=== PATIENT | male | born 1995 ===

== ENCOUNTER 2023-09-16 09:11 | Inpatient (IN) | payer OTHER, SELFPAY ==
[2023-09-16] VITALS (27 sets, daily range): BP systolic 99–163; BP diastolic 8–98; PULSE 89–130; RESP 16–28; TEMP 36.8–37.4; O2SAT 30–98; BMI 27.9; BMI 28.3; BMI 28.7
--- NOTE | ~2023-09-16 | CT_ITS ---
EXAMINATION: CT CHEST WITHOUT CONTRAST CLINICAL INFORMATION: Shortness of breath. Overdose. COMPARISON: None available. TECHNIQUE: Multidetector volumetric CT imaging of the chest was done. Axial MIP volume rendering provided. Sagittal and coronal reformatted images were obtained. This CT examination was performed using dose optimization techniques as appropriate, variously including the following: *Automated exposure control *Adjustment of mA and/or kV according to patient size (this includes techniques or standardized protocols for targeted exams where dose is matched to indication/reason for exam; i.e. extremities or head) *Use of iterative reconstruction technique DLP: 285 mGy-cm FINDINGS: LUNGS: Extensive bilateral perihilar airspace disease with relative sparing of the peripheral lung. Airspace disease is mostly groundglass type opacities though there are multifocal small alveolar densities opacities scattered through this region of the perihilar lung and also at both lung bases. The differential diagnosis would include inflammatory or infectious etiologies however the perihilar distribution is most suggestive of pulmonary edema. There is no pleural effusion however. Central airways are open. MEDIASTINUM: Heart size is normal. No mediastinal mass or significant lymphadenopathy. There is no pericardial effusion. CORONARY ARTERY CALCIFICATION: None visualized on this study. PLEURA: There is no pleural effusion. No pleural mass or thickening. AXILLA: No lymphadenopathy. UPPER ABDOMEN: Unremarkable. OSSEOUS STRUCTURES: Unremarkable. CT/CT chest wo IV con IMPRESSION: Extensive bilateral perihilar airspace disease with relative sparing of the peripheral lung. The differential diagnosis would include inflammatory or infectious etiologies however the perihilar distribution is most suggestive of pulmonary edema. Fleischner guidelines were followed.
--- NOTE | ~2023-09-16 | XR_ITS ---
EXAMINATION: XR CHEST CLINICAL INFORMATION: Overdose. COMPARISON: None available. TECHNIQUE: Frontal view of the chest was obtained. FINDINGS: Broad bilateral areas of alveolar consolidation likely reflect edema. Heart size normal. Pulmonary vessels not clearly delineated. XR/XR chest 1V IMPRESSION: Widespread confluent alveolar consolidations. This likely reflects noncardiogenic pulmonary edema.
--- NOTE | 2023-09-16 09:36 | PC.NURSE ---
chest xray being taken at this time.
[2023-09-16] MEDS: methylPREDNISolone Sod Succ 125 MG/2 ML VIAL IVPUSH (09:39)
[2023-09-16] MEDS: Naloxone HCl 0.4 MG/ML VIAL IVPUSH (09:39)
[2023-09-16] MEDS: Magnesium Sulfate/H2O 2 GM/50 ML PIGGYBACK IV (09:39)
--- NOTE | 2023-09-16 09:40 | PC.NURSE ---
18gIV placed in the right AC. 20gIV placed in the left AC. medication administered per provider order. pt currently on high flow at this time. settings documented in vitals section. Dr. Valerio bedside. RT bedside. pt seemingly lethargic. states he is feeling sleepy. thick/bloody sputum noted w/ productive cough.
--- NOTE | 2023-09-16 09:54 | ED_ITS ---
HPI - Overdose General Chief Complaint: Overdose Stated Complaint: Overdose Time Seen by Provider: 09/16/23 09:23 Source: patient and other (partner) Mode of arrival: ambulatory Limitations: no limitations History of Present Illness HPI Narrative: 28 yo male with PMH of asthma, recurrent nosebleeds no hx of blood disorder, intermittent sniffing of heroin used this AM with friends when they called his partner and told her he overdosed friends administered a total of 12mg IN narcan and patient then had nosebleed and coughing up blood. Partner rushed him to ED - he was found to have sats of 30% on arrival. He is not on blood thinners. He is not on MAT therapy. He was placed on NRB on arrival. Brought to bed 5 initially started on nebs and NC but sats in 50s. Trialed on high flow and nebs but sat never above 81%, CXR done showing likely diffuse edema vs alveolar hemorrhage placed on Bipap and sats up to 91% and patient feeling better still having intermittent hemoptysis MD complaint: accidental overdose Onset (ago): hour(s) (1) Timing confirmed by: spouse Context: Accidental Overdose: wanted to get high Associated symptoms: other (hemoptysis, epistaxis) Treatments Prior to Arrival: narcan (12) Related Data Home Medications Medication Instructions Recorded Confirmed No Known Home Meds 09/16/23 09/16/23 Allergies Allergy/AdvReac Type Severity Reaction Status Date / Time No Known Allergies Allergy Verified 09/16/23 09:33 Review of Systems 2 Review of Systems: Constitutional : No Fever, No Chills ENT/Mouth : No Hoarseness, No sore throat, No Rhinorrhea Eyes: No Redness, No Discharge, No Vision Changes Cardiovascular : No Chest Pain, positive SOB, positive Dyspnea on Exertion, No Edema Respiratory : positive Cough, No Sputum, positive Wheezing, pos hemoptysis Gastrointestinal : No Nausea, No Vomiting, No Diarrhea, No abdominal Pain Genitourinary : No Dysuria, No Hematuria Musculoskeletal : No joint pain, No Myalgias Skin : No rash Neuro : No Weakness, No Numbness, No Headache Psych : No anxiety, depression All other systems reviewed and are negative PMFSH Past Medical History Attestation statement: The following information was validated with the patient. Source: old records reviewed Medical History (Updated 09/16/23 @ 12:34 by Toya Valerio DO) RBBB Asthma Social History Social History (Updated 09/16/23 @ 10:03 by Toya Valerio DO) Alcohol intake: current Alcohol intake frequency: holidays/special occasions only Patient Tobacco Use Status: Tobacco use Unknown Smoked in Last 30 Days: Yes Use of substances other than those prescribed or required for medical reasons: Yes Substance Use Type: Crack/Cocaine Substance Use Frequency: Occasionally Last Used Substance: Just Prior to Admission Advance Directives: No Physical Exam 2 Vital Signs: Vital Signs: Last Vital Signs Temp 98.6 F 09/16/23 14:09 Pulse 108 H 09/16/23 14:09 Resp 16 09/16/23 14:09 BP 133/69 09/16/23 14:09 Pulse Ox 93 09/16/23 14:09 O2 Del Method High Flow Nasal C annula 09/16/23 14:09 O2 Flow Rate 15 09/16/23 12:03 BMI result Body Mass Index 27.9 Appearance: Alert. Oriented X3. Moderate acute distress. Eyes: Pupils equal, round and reactive to light. ENT: Pharynx normal. Dried blood out of both nares no active bleeding Neck: Normal inspection. Neck supple. CVS: tachycardic heart rate and rhythm. Pulses normal. Respiratory: Moderate respiratory distress - retractions single words. Breath sounds very diminished with rales has intermittent brb hemopytsis Abdomen: Soft and non-tender. Skin: Skin warm and dry. Normal skin color. Normal skin turgor. Extremities: No lower extremity edema. No calf ttp Neuro: Oriented X 3. No motor deficit. No sensory deficit. Course Course Course Narrative: bipap done for asthma and pulmonary edema from narcan not infection or severe sepsis lactic acidosis and eleavated troponin due to profound hypoxia and not infection or severe sepsis I am holding fluids given concern for pulm edema Reevaluation(s) Reevaluation #1: HR down to 120, hemoptysis improving, O2 100%, will continue to monitor Reevaluation #2: trial off bipap 1215pm Reevaluation #3: doing well on high flow at this time 1232pm very intermittent scant hemoptysis it is almost fully resolved Additional Reevaluation(s): trop was due to demand from hypoxia not ACS Dr. Mcintosh will admit Medications Administered Discontinued Medications Generic Name Dose Route Start Last Admin Trade Name Freq PRN Reason Stop Dose Admin Furosemide 20 mg 09/16/23 13:26 09/16/23 13:39 Furosemide 20 Mg/2 Ml Vial IVPUSH 09/16/23 13:27 20 mg ONCE ONE Administration Protocol Magnesium Sulfate 2 gm in 50 mls @ 25 mls/hr 09/16/23 09:33 09/16/23 11:39 Magnesium Sulfate/H2o IV 09/16/23 11:32 Infused ONCE ONE Infusion Potassium Chloride 10 meq in 100 mls @ 100 mls/hr 09/16/23 10:30 09/16/23 13:40 Potassium Chloride/H20 IV 09/16/23 12:29 Infused Q1H SUAD Infusion Methylprednisolone Sodium Succinate 125 mg 09/16/23 09:33 09/16/23 09:39 Methylprednisolone Sod Succ 125 Mg/2 Ml Vial IVPUSH 09/16/23 09:34 125 mg ONCE ONE Administration Naloxone HCl 0.4 mg 09/16/23 09:33 09/16/23 09:39 Naloxone Hcl 0.4 Mg/Ml Vial IVPUSH 09/16/23 09:34 0.4 mg STAT STA Administration Tranexamic Acid 500 mg 09/16/23 10:30 09/16/23 10:27 Tranexamic Acid 1,000 Mg/10 Ml Vial INHALE 09/16/23 10:31 500 mg ONCE ONE Administration Medical Decision Making Medical Decision Making [facility] Narrative: 28 yo male with asthma, nose bleeds here with c/o accidental overdose given 12mg IN narcan by friends no CPR done - hemoptysis sats in 30% on arrival no response to nebs and high flow after CXR placed in bipap now up to 91% given steroids, magnesium, will order CT scan and possibly diurese patient. Given hemoptysis will also given INH tranexamic acid. Anticipate admission pending improvement with NIPPV. Differential Diagnosis Differential Diagnoses: The differential diagnosis associated with the presentation includes overdose, asthma, pulm edema associated with narcan, hemoptysis alveolar hemorrhage Admission/Observation Consideration of admission/observation: Escalation of care including admission/observation considered needs admission for further monitoring Consult Healthcare Provider Management of the patient was discussed with: Hospitalist (will admit ) and Faculty Dean (shayy has been notified as well about troponin - demand) Dr. Mcintosh has reviewed images will follow and consult in ED Lab Data [facility] Lab Attestation statement: I reviewed the patient's lab results. 09/16/23 09:51 09/16/23 09:51 Labs: Lab Results 09/16/23 09/16/23 09/16/23 Range/Units 09:51 09:57 12:00 WBC 7.8 (4.8-10.8) X10*3/uL RBC 4.99 (4.60-5.80) X10*6/uL Hgb 15.6 (14.0-18.0) g/dl Hct 45.4 (42.0-52.0) % MCV 91.0 (80.0-98.0) fL MCH 31.3 (27.0-33.0) pg MCHC 34.4 (31.0-36.0) g/dl RDW 12.5 (11.0-16.0) % Plt Count 193 (160-400) X10*3/uL MPV 9.9 (9.4-12.4) fL Immature Gran % (Auto) 0.1 (0.0-0.4) % Neut % (Auto) 75.6 H (45-73) % Lymph % (Auto) 17.5 L (20-40) % Ness % (Auto) 6.4 (2-11) % Eos % (Auto) 0.1 (0-4) % Baso % (Auto) 0.3 (0-2) % Lymph # (Auto) 1.4 (1.2-4.9) X10*3/uL [place]ess # (Auto) 0.5 (0.1-1.2) X10*3/uL Eos # (Auto) 0.0 (0.0-0.4) X10*3/uL Baso # (Auto) 0.0 (0.0-0.2) X10*3/uL Abs Immat Gran (auto) 0.01 (0.00-0.03) X10*3/uL Absolute Neuts (auto) 5.9 (2.0-8.3) x10*3/uL Absolute Nucleated RBC 0.000 (0.0-0.012) X10*3/uL Nucleated RBC % (auto) 0.0 (0.0-0.2) /100WBC VBG pH 7.33 (7.32-7.43) VBG pCO2 41 mmHg VBG pO2 33 mmHg VBG HCO3 22 (22-26) mmol/L VBG O2 Saturation 51.0 % VBG Base Excess -3.5 mmol/L Sodium 134 L (135-145) mmol/L Potassium 3.2 L (3.3-5.1) mmol/L Chloride 100 (96-108) mmol/L Carbon Dioxide 21 L (22-29) mmol/L Anion Gap 16 (12-20) BUN 12 (9-16) mg/dL Creatinine 1.17 (0.5-1.4) mg/dL Estim Creat Clear Calc 110.2 Estimated GFR > 60 Random Glucose 176 H (60-115) mg/dL Lactic Acid 4.5 H* (0.5-2.0) mmol/L Lactic Acid F/U @ 2Hr 3.3 H* (0.5-2.0) mmol/L Calcium 8.7 (8.4-10.2) mg/dL Magnesium 2.7 H (1.6-2.6) mg/dL Total Bilirubin 0.4 (0.0-1.0) mg/dL AST 18 (5-37) U/L ALT 24 (0-40) U/L Alkaline Phosphatase 50 (39-117) U/L Troponin I High Sens 45.1 H 145.9 H* D (<3.5-35.0) ng/L B-Natriuretic Peptide 13 (<100) pg/mL Total Protein 6.9 (6.5-8.0) g/dL Albumin 4.3 (3.5-5.0) g/dL Independent Interpretation I performed an independent interpretation of an: EKG, Plain X-Ray and CT Scan (pulm edema possible scant area of alveolar hemorrhage RLL) Interpretation: Rate: 126 Rhythm: sinus tachycardia [place]: normal Normal P waves. Normal JERED. RBBB ST T wave : no DIAMOND qTC: 506 prior studies: has known RBBB The study has been interpreted contemporaneously by me. . Radiology Impression Discussion of test interpretation with radiology: I have reviewed the radiologist's reading. Independent Historian Clinical information obtained from an independent historian. History obtained from or confirmed by: Spouse Critical Care Time Critical Care Time Critical Care Time: Yes Total Critical Care Time: 90 Attestation: immediate and repeat assessments to manage hypoxia and hemoptysis, NIPPV, high flow, bedside assessments, multiple nebs and interventions I attest to this time spent taking care of the patient Discharge Plan Discharge Clinical Impression: Acute non-cardiogenic pulmonary edema, Acidosis, lactic, Hypoxia, Elevated troponin, Hemoptysis Overdose Qualifiers: Encounter type: initial encounter Injury intent: accidental or unintentional Q ualified Code(s): T50.901A - Poisoning by unspecified drugs, medicaments and biological substances, accidental (unintentional), initial encounter Patient Disposition: Admitted As Inpatient
[2023-09-16 09:58] LABS: MANUAL DIFF FLAG NO
--- NOTE | 2023-09-16 09:58 | PC.NURSE ---
pt remains on bipap 18/100 @ 100% at this time. O2 = 94%. sob/wob noted. respirations even but labored. continues to present w/ productive cough at this time. thick bloody sputum noted. sinus tachy on the commissions analyst. pt slightly hypotensive. RT remains bedside at this time.
[2023-09-16 10:01] LABS: Basophils Percent Auto 0.3 % (0-2); Eosinophils Percent Auto 0.1 % (0-4); Hematocrit 45.4 % (42.0-52.0); Hemoglobin 15.6 g/dl (14.0-18.0); Imm Gran Abs Auto 0.01 X10*3/uL (0.00-0.03); Imm Gran Pct Auto 0.1 % (0.0-0.4); Lymphocytes Absolute Auto 1.4 X10*3/uL (1.2-4.9); Lymphocytes Percent Auto 17.5 % (20-40); Mean Corpuscular HGB Conc 34.4 g/dl (31.0-36.0); Mean Corpuscular Hemoglobin 31.3 pg (27.0-33.0); Mean Platelet Volume 9.9 fL (9.4-12.4); Monocytes Absolute Auto 0.5 X10*3/uL (0.1-1.2); Monocytes Percent Auto 6.4 % (2-11); Neutrophils Absolute Auto 5.9 x10*3/uL (2.0-8.3); Neutrophils Percent Auto 75.6 % (45-73); Platelet Count 193 X10*3/uL (160-400); Red Blood Count 4.99 X10*6/uL (4.60-5.80); Red Cell Distribution Width 12.5 % (11.0-16.0); White Blood Count 7.8 X10*3/uL (4.8-10.8)
[2023-09-16 10:03] LABS: VBG Base Excess -3.5 mmol/L; VBG HCO3 22 mmol/L (22-26); VBG pCO2 41 mmHg; VBG pH 7.33 (7.32-7.43); VBG pO2 33 mmHg
--- NOTE | 2023-09-16 10:05 | ECG_ITS ---
Test Reason : OD Blood Pressure : / mmHG Vent. Rate : 126 BPM Atrial Rate : 126 BPM P-R Int : 152 ms QRS Dur : 152 ms QT Int : 350 ms P-R-T Axes : 072 100 033 degrees QTc Int : 506 ms Sinus tachycardia Right bundle branch block Abnormal ECG No previous ECGs available Referred By: Toya Valerio Electronically Signed By:JOSUE WOODS
[2023-09-16 10:17] LABS: Alanine Aminotransferase 24 U/L (0-40); Albumin Level 4.3 g/dL (3.5-5.0); Alkaline Phosphatase 50 U/L (39-117); Anion Gap 16 (12-20); Aspartate Amino Transferase 18 U/L (5-37); Bilirubin Total 0.4 mg/dL (0.0-1.0); Blood Urea Nitrogen 12 mg/dL (9-16); Calcium 8.7 mg/dL (8.4-10.2); Carbon Dioxide 21 mmol/L (22-29); Chloride 100 mmol/L (96-108); Creatinine Clr Calc Pharmacy 110.2; Estimated Glomerular Filt Rate > 60; Glucose Random 176 mg/dL (60-115); Magnesium 2.7 mg/dL (1.6-2.6); Potassium 3.2 mmol/L (3.3-5.1); Sodium 134 mmol/L (135-145); Total Protein 6.9 g/dL (6.5-8.0)
[2023-09-16 10:20] LABS: Venous Blood Gas Refer to POC result
[2023-09-16 10:22] LABS: B Type Natriuretic Peptide 13 pg/mL (<100)
--- NOTE | 2023-09-16 10:23 | PC.NURSE ---
pt a&ox4 at this time. pt seemingly less lethargic at this time. pt still verbalizing 8/10 pain in his chest d/t coughing. pain is nonradiating. pt remains sinus tachy on the secured entrance monitor. pt remains on bipap at 18/10 @ 100%. 98% at this time. sob/wob noted. respirations remain even/labored. decreased in productive cough at this time. decrease in tenacious bloody sputum at this time.
[2023-09-16 10:24] LABS: Troponin-I High Sensitivity 45.1 ng/L (<3.5-35.0)
[2023-09-16] MEDS: Tranexamic Acid 1,000 MG/10 ML VIAL 500 MG INHALE (10:27)
[2023-09-16 10:28] LABS: Lactic Acid 4.5 mmol/L (0.5-2.0)
[2023-09-16] MEDS: Potassium Chloride/H20 10 MEQ/100 ML PIGGYBACK 100 MEQ IV ×2 (10:37→11:57)
--- NOTE | 2023-09-16 10:40 | PC.NURSE ---
medication administered per provider order.
[2023-09-16 11:56] LABS: Reflex Lactate? Lactic Acid Added
--- NOTE | 2023-09-16 12:20 | PC.NURSE ---
pt returned from CT at this time. pt transitioned to high flow by RT. rates documented in vitals section. pt continues to have slight sob/wob at this time. respirations even/slightly labored. pt no longer lethargic. still verbalizing 4/10 chest pain. pt waiting for CT results at this time.
[2023-09-16 12:47] LABS: Troponin-I High Sensitivity 145.9 ng/L (<3.5-35.0); ~Lactic Acid-LAB USE ONLY 3.3 mmol/L (0.5-2.0)
[2023-09-16] MEDS: Furosemide 20 MG/2 ML VIAL IVPUSH (13:39)
--- NOTE | 2023-09-16 13:41 | PC.NURSE ---
admitting provider bedside assessing pt. medication administered per provider order. pt remains sinus tachy on the panel monitor. pt no longer displaying w/ sob/wob at this time. respirations even and unlabored. pt able to hold a conversation w/o difficulty. pt aware of plan of care in regards to going to being admitted at this time. plan of care ongoing at this time. call pacheco placed within reach.
--- NOTE | 2023-09-16 13:49 | PHA.MEDREC ---
Pharmacy Consult ? Medication Reconciliation Pharmacy has completed the medication reconciliation. Confirmed with patient that he takes no prescribed or OTC medication.
[2023-09-16 14:07] LABS: Reflex Lactate? 2 Y
[2023-09-16 14:36] LABS: Amphetamine Screen Urine POSITIVE (Not Detect); Barbiturates, Urine Not Detected (Not Detect); Benzodiazepines Screen Urine Not Detected (Not Detect); Cannabinoid Screen Urine Not Detected (Not Detect); Cocaine Screen Urine POSITIVE (Not Detect); Fentanyl, urine POSITIVE (Not Detect); Opiate Screen Urine Not Detected (Not Detect); Phencyclidine Screen Urine Not Detected (Not Detect)
[2023-09-16] MEDS: Potassium Chloride Packet 20 MEQ PACKET 60 MEQ PO (14:39)
[2023-09-16 14:46] LABS: ~Lactic Acid-LAB USE ONLY 3.3 mmol/L (0.5-2.0)
--- NOTE | 2023-09-16 14:47 | PC.NURSE ---
critical value of lactic acid at 3.[address] lópez notified/aware at this time.
--- NOTE | 2023-09-16 15:08 | PC.NURSE ---
report given to OLIVER Ruggiero in ICU at this time. transport notified that pt ready to be transported at this time.
--- NOTE | 2023-09-16 15:38 | P.HPCC_ITS ---
History of Present Illness Date of Service: 09/16/23 Chief Complaint: Opioid overdose, epistaxis 28-year-old gentleman with underlying substance abuse admitted on 09/16/2023 with opioid overdose with administration of 12 mg of Narcan [id number] with regain of consciousness and development of epistaxis, opioid induced pulmonary edema, and +/- minor hemoptysis resulting in acute hypoxic respiratory failure requiring high-flow nasal cannula support. Patient treated with systemic glucocorticoids and a dose of diuretics and admitted to intensive care unit for close monitoring. Review of Systems 2 Constitutional: Constitutional: Denies daytime sleepiness, Denies excessive sweating, Denies fatigue, Denies fever(s), Denies lethargy, Denies malaise, Denies night sweats, Denies snoring and Denies weight loss Eyes: Eyes: Denies blurry vision and Denies itchy eyes ENT: Denies nasal congestion, Denies post nasal drip, Denies sinus pain, Denies sinus pressure and Denies other ( Thrush) Cardiovascular: Cardiovascular: Denies chest pain, Denies pedal edema, Denies dyspnea, Denies orthopnea and Denies paroxysmal nocturnal dyspnea Respiratory: Respiratory: Denies cough, Denies hemoptysis, Denies excessive phlegm production, Denies dyspnea, Denies snoring and Denies wheezing Gastrointestinal: Gastrointestinal: Denies abdominal pain and Denies heartburn Musculoskeletal: Musculoskeletal: Denies myalgias, Denies arthralgias and Denies joint swelling Integumentary/Breasts: Skin/Breast: Denies rash Neurologic: Denies memory loss and Denies seizure-like activity Psychiatric: Psychiatric: Denies abnormal sleep pattern, Denies anxiety and Denies memory loss Endocrine: Endocrine: Denies excessive sweating, Denies fatigue and Denies heat intolerance Hematologic/Lymphatic: Hematologic/Lymphatic: Denies easy bruising Allergic/Immunologic: Allergic/Immunologic: Denies itchy eyes, Denies seasonal rhinorrhea and Denies wheezing PMFSH Past Medical History Medical History (Updated 09/16/23 @ 15:48 by Hill Mcintosh MD) RBBB Asthma Social History Social History (Updated 09/16/23 @ 10:03 by Toya Valerio DO) Alcohol intake: current Alcohol intake frequency: holidays/special occasions only Patient Tobacco Use Status: Tobacco use Unknown Smoked in Last 30 Days: Yes Use of substances other than those prescribed or required for medical reasons: Yes Substance Use Type: Crack/Cocaine Substance Use Frequency: Occasionally Last Used Substance: Just Prior to Admission Advance Directives: No Nutrition Risks: No Nutritional Risk Meds Allergies Allergy/AdvReac Type Severity Reaction Status Date / Time No Known Allergies Allergy Verified 09/16/23 09:33 Home Medications Medication Instructions Recorded Confirmed Last Taken Type No Known Home Meds 09/16/23 09/16/23 Unknown History Physical Exam 2 Vital Signs: Vital Signs: Last Vital Signs Temp 98.6 F 09/16/23 14:09 Pulse 108 H 09/16/23 14:09 Resp 16 09/16/23 14:09 BP 133/69 09/16/23 14:09 Pulse Ox 93 09/16/23 14:09 O2 Del Method High Flow Nasal C annula 09/16/23 14:09 O2 Flow Rate 15 09/16/23 12:03 BMI result Body Mass Index 28.3 Const: General: no acute distress and alert Nutritional Appearance: not obese Orientation/consciousness: Other orientation findings ( oriented) HEENT: Head: Yes atraumatic Eyes: General: appearance normal, both eyes and all related structures S clerae: sclerae normal EOM: EOMs intact bilaterally Neck: Neck: Yes supple Lymphatic: no lymphadenopathy noted Resp: Effort & Inspection: normal respiratory effort and no use of accessory muscles Auscultation: clear to auscultation bilaterally Cardio: Rate: tachycardic Rhythm: regular rhythm Heart sounds: no gallops, no murmurs and no rubs Skin: General skin exam: other ( warm) Extrem: General: No clubbing, No cyanosis and No edema Results Labs 09/16/23 09:51 09/16/23 09:51 Labs: Laboratory Results - last 24 hr 09/16/23 09/16/23 09/16/23 09:51 09:57 12:00 MCV 91.0 MCH 31.3 MCHC 34.4 RDW 12.5 Plt Count 193 MPV 9.9 Immature Gran % (Auto) 0.1 Neut % (Auto) 75.6 H Lymph % (Auto) 17.5 L [place] % (Auto) 6.4 Eos % (Auto) 0.1 Baso % (Auto) 0.3 Lymph # (Auto) 1.4 [place] # (Auto) 0.5 Eos # (Auto) 0.0 Baso # (Auto) 0.0 Abs Immat Gran (auto) 0.01 Absolute Neuts (auto) 5.9 Absolute Nucleated RBC 0.000 Nucleated RBC % (auto) 0.0 VBG pH 7.33 VBG pCO2 41 VBG pO2 33 VBG HCO3 22 VBG O2 Saturation 51.0 VBG Base Excess -3.5 Anion Gap 16 Estim Creat Clear Calc 110.2 Estimated GFR > 60 Random Glucose 176 H Lactic Acid 4.5 H* Lactic Acid F/U @ 2Hr 3.3 H* Lactic Acid F/U @ 4Hr Calcium 8.7 Magnesium 2.7 H Total Bilirubin 0.4 AST 18 ALT 24 Alkaline Phosphatase 50 B-Natriuretic Peptide 13 Total Protein 6.9 Albumin 4.3 Urine Opiates Screen Urine Fentanyl Screen Ur Barbiturates Screen Ur Phencyclidine Scrn Ur Amphetamines Screen U Benzodiazepines Scrn Urine Cocaine Screen U Marijuana (THC) Screen 09/16/23 09/16/23 14:08 14:14 MCV MCH MCHC RDW Plt Count MPV Immature Gran % (Auto) Neut % (Auto) Lymph % (Auto) [place] % (Auto) Eos % (Auto) Baso % (Auto) Lymph # (Auto) [place] # (Auto) Eos # (Auto) Baso # (Auto) Abs Immat Gran (auto) Absolute Neuts (auto) Absolute Nucleated RBC Nucleated RBC % (auto) VBG pH VBG pCO2 VBG pO2 VBG HCO3 VBG O2 Saturation VBG Base Excess Anion Gap Estim Creat Clear Calc Estimated GFR Random Glucose Lactic Acid Lactic Acid F/U @ 2Hr Lactic Acid F/U @ 4Hr 3.3 H* Calcium Magnesium Total Bilirubin AST ALT Alkaline Phosphatase B-Natriuretic Peptide Total Protein Albumin Urine Opiates Screen Not Detected Urine Fentanyl Screen POSITIVE H Ur Barbiturates Screen Not Detected Ur Phencyclidine Scrn Not Detected Ur Amphetamines Screen POSITIVE H U Benzodiazepines Scrn Not Detected Urine Cocaine Screen POSITIVE H U Marijuana (THC) Screen Not Detected Imaging Radiologist's Impressions: Impressions Chest X-Ray 09/16/23 09:45 IMPRESSION: Widespread confluent alveolar consolidations. This likely reflects noncardiogenic pulmonary edema. Chest CT 09/16/23 12:35 IMPRESSION: Extensive bilateral perihilar airspace disease with relative sparing of the peripheral lung. The differential diagnosis would include inflammatory or infectious etiologies however the perihilar distribution is most suggestive of pulmonary edema. Fleischner guidelines were followed. Assessment and Plan (1) Epistaxis: Status: Acute (2) Hemoptysis: Status: Acute (3) Elevated troponin: Status: Acute (4) Hypoxia: Status: Acute (5) Acute non-cardiogenic pulmonary edema: Status: Acute (6) Overdose: Qualifiers: Encounter type: initial encounter Injury intent: accidental or unintentional Qualified Code(s): T50.901A - Poisoning by unspecified drugs, medicaments and biological substances, accidental (unintentional), initial encounter Status: Acute Plan Assessment: 28-year-old gentleman with substance abuse admitted with opioid overdose status post [id number] Narcan with development of epistaxis, pulmonary edema, and minor hemoptysis requiring high-flow support. Plan: Neuro: No acute issues. Cardiac: Minor elevated troponin, continue to trend. Pulmonary: Acute hypoxic respiratory failure, CT chest reviewed, likely underlying upload induced pulmonary edema. Status post a dose of diuretic. Continue to titrate off as tolerated. Continue systemic glucocorticoids. Minor hemoptysis on the background of epistaxis. Continue to monitor clinically. Renal: No acute issues. Endo: No acute issues. GI: No acute issues. ID: No acute issues Heme/Onc: No acute issues. Psych: No acute issues. Miscellaneous: No acute issues. Prophylaxis: Pneumatic compression Diet: Full liquid Critical care time spent: 60 minutes
[2023-09-16 16:28] LABS: Anion Gap 17 (12-20); Blood Urea Nitrogen 14 mg/dL (9-16); Calcium 9.1 mg/dL (8.4-10.2); Carbon Dioxide 22 mmol/L (22-29); Chloride 100 mmol/L (96-108); Creatinine Clr Calc Pharmacy 131.2; Estimated Glomerular Filt Rate > 60; Glucose Random 154 mg/dL (60-115); Potassium 4.5 mmol/L (3.3-5.1); Sodium 134 mmol/L (135-145)
[2023-09-16 16:38] LABS: Troponin-I High Sensitivity 124.7 ng/L (<3.5-35.0)
[2023-09-16] MEDS: hydrOXYzine HCL 25 MG TABLET PO (20:30)
[2023-09-16] MEDS: cloNIDine HCL 0.1 MG TABLET PO (22:03)
[2023-09-17] VITALS (21 sets, daily range): BP systolic 95–162; BP diastolic 45–102; PULSE 85–122; RESP 16–39; TEMP 36.6–37.5; O2SAT 4–99; BMI 28.6
[2023-09-17] MEDS: dexmedeTOMIDidine HCL/NS 400 MCG/100 ML INFUS..BTL 23.33 MCG IVCONT (00:29)
[2023-09-17 05:02] LABS: VBG Base Excess -1.2 mmol/L; VBG HCO3 22 mmol/L (22-26); VBG pCO2 32 mmHg; VBG pH 7.43 (7.32-7.43); VBG pO2 89 mmHg
[2023-09-17 05:11] LABS: Hematocrit 39.5 % (42.0-52.0); Hemoglobin 13.7 g/dl (14.0-18.0); Mean Corpuscular HGB Conc 34.7 g/dl (31.0-36.0); Mean Corpuscular Hemoglobin 31.8 pg (27.0-33.0); Mean Corpuscular Volume 91.6 fL (80.0-98.0); Mean Platelet Volume 10.3 fL (9.4-12.4); Platelet Count 170 X10*3/uL (160-400); Red Blood Count 4.31 X10*6/uL (4.60-5.80); Red Cell Distribution Width 12.4 % (11.0-16.0); Venous Blood Gas Refer to POC result; White Blood Count 11.2 X10*3/uL (4.8-10.8)
[2023-09-17] MEDS: dexmedeTOMIDidine HCL/NS 400 MCG/100 ML INFUS..BTL 9.33 MCG IVCONT (05:19)
[2023-09-17 05:30] LABS: Band Neutrophils Percent 20 % (3-5); Lymphocytes Absolute Manual 1.5 X10*3/uL (1.2-4.9); Lymphocytes Percent Manual 13 % (20-40); Monocytes Absolute Manual 1.2 X10*3/uL (0.1-1.2); Monocytes Percent Manual 11 % (2-11); Neutrophils Absolute Manual 8.5 X10*3/uL (2.0-8.3); Neutrophils Percent Manual 56 % (45-73); Platelet Estimate NORMAL (NORMAL); Platelet Morphology Comment NORMAL; RBC Morphology NORMAL; Toxic Vacuolation PRESENT
[2023-09-17 05:40] LABS: Alanine Aminotransferase 24 U/L (0-40); Albumin Level 4.5 g/dL (3.5-5.0); Alkaline Phosphatase 38 U/L (39-117); Anion Gap 15 (12-20); Aspartate Amino Transferase 20 U/L (5-37); Bilirubin Total 0.7 mg/dL (0.0-1.0); Blood Urea Nitrogen 17 mg/dL (9-16); Calcium 9.1 mg/dL (8.4-10.2); Carbon Dioxide 23 mmol/L (22-29); Chloride 102 mmol/L (96-108); Estimated Glomerular Filt Rate > 60; Glucose Random 124 mg/dL (60-115); Magnesium 2.5 mg/dL (1.6-2.6); Phosphorus 1.8 mg/dL (2.7-4.5); Potassium 6.7 mmol/L (3.3-5.1); Sodium 133 mmol/L (135-145); Total Protein 7.3 g/dL (6.5-8.0)
[2023-09-17] MEDS: 0.9 % Sodium Chloride 1,000 ML 999 ML IVCONT ×2 (06:00→06:57)
[2023-09-17] MEDS: Sodium Zirconium Cyclosilicate 10 GM POWD.PACK PO (06:20)
[2023-09-17] MEDS: Furosemide 20 MG/2 ML VIAL IVPUSH (06:21)
--- NOTE | 2023-09-17 09:23 | PM.CCPN ---
Subjective Subjective Date of Service: 09/17/23 Interval History: 28-year-old gentleman with underlying substance abuse admitted on 09/16/2023 with opioid overdose with administration of 12 mg of Narcan [id number] with regain of consciousness and development of epistaxis, opioid induced pulmonary edema, and +/- minor hemoptysis resulting in acute hypoxic respiratory failure requiring high-flow nasal cannula support. Patient treated with systemic glucocorticoids and a dose of diuretics and admitted to intensive care unit for close monitoring. Required Precedex drip for substance withdrawal overnight, now titrated off. Epistaxis/hemoptysis resolved. Critical Care Time (minutes): 45 Physical Exam Vital Signs: Vital Signs: Last Vital Signs Temp 97.9 F 09/17/23 08:00 Pulse 89 09/17/23 08:00 Resp 22 H 09/17/23 08:00 BP 107/55 L 09/17/23 08:00 Pulse Ox 92 09/17/23 08:00 O2 Del Method Nasal Cannula 09/17/23 08:00 O2 Flow Rate 45 09/17/23 07:00 FiO2 100 09/17/23 07:00 BMI result Body Mass Index 28.6 Const: General: no acute distress, alert and awake Eyes: Sclerae: sclerae normal EOM: EOMs intact bilaterally Neck: Neck: Yes no lymphadenopathy, Yes trachea midline and Yes supple Resp: Effort & Inspection: normal respiratory effort and no respiratory distress Auscultation: clear to auscultation bilaterally Cardio: Rate: regular rate Rhythm: regular rhythm Heart sounds: no gallops, no murmurs and no rubs GI: Palpation (GI): Soft to palpation and Other GI palpation findings present ( Nontender) Auscultation: normal bowel sounds Extrem: General: Yes no pedal edema, No clubbing and No cyanosis Objective Data Labs 09/17/23 04:56 09/17/23 04:56 Labs: Laboratory Results - last 24 hr 09/16/23 09/16/23 09/16/23 09:51 09:57 12:00 WBC 7.8 RBC 4.99 Hgb 15.6 Hct 45.4 MCV 91.0 MCH 31.3 MCHC 34.4 RDW 12.5 Plt Count 193 MPV 9.9 Immature Gran % (Auto) 0.1 Neut % (Auto) 75.6 H Lymph % (Auto) 17.5 L [place] % (Auto) 6.4 Eos % (Auto) 0.1 Baso % (Auto) 0.3 Lymph # (Auto) 1.4 [place] # (Auto) 0.5 Eos # (Auto) 0.0 Baso # (Auto) 0.0 Abs Immat Gran (auto) 0.01 Absolute Neuts (auto) 5.9 Absolute Nucleated RBC 0.000 Nucleated RBC % (auto) 0.0 Neutrophils % (Manual) Band Neutrophils % Lymphocytes % (Manual) Monocytes % (Manual) Abs Neuts (Manual) Lymphocytes # (Manual) Monocytes # (Manual) Toxic Vacuolation Platelet Estimate Plt Morphology Comment RBC Morphology VBG pH 7.33 VBG pCO2 41 VBG pO2 33 VBG HCO3 22 VBG O2 Saturation 51.0 VBG Base Excess -3.5 Sodium 134 L Potassium 3.2 L Chloride 100 Carbon Dioxide 21 L Anion Gap 16 BUN 12 Creatinine 1.17 Estim Creat Clear Calc 110.2 Estimated GFR > 60 Random Glucose 176 H Lactic Acid 4.5 H* Lactic Acid F/U @ 2Hr 3.3 H* Lactic Acid F/U @ 4Hr Calcium 8.7 Phosphorus Magnesium 2.7 H Total Bilirubin 0.4 AST 18 ALT 24 Alkaline Phosphatase 50 Troponin I High Sens 45.1 H 145.9 H* D B-Natriuretic Peptide 13 Total Protein 6.9 Albumin 4.3 Urine Opiates Screen Urine Fentanyl Screen Ur Barbiturates Screen Ur Phencyclidine Scrn Ur Amphetamines Screen U Benzodiazepines Scrn Urine Cocaine Screen U Marijuana (THC) Screen 09/16/23 09/16/23 09/16/23 14:08 14:14 16:04 WBC RBC Hgb Hct MCV MCH MCHC RDW Plt Count MPV Immature Gran % (Auto) Neut % (Auto) Lymph % (Auto) [place] % (Auto) Eos % (Auto) Baso % (Auto) Lymph # (Auto) [place] # (Auto) Eos # (Auto) Baso # (Auto) Abs Immat Gran (auto) Absolute Neuts (auto) Absolute Nucleated RBC Nucleated RBC % (auto) Neutrophils % (Manual) Band Neutrophils % Lymphocytes % (Manual) Monocytes % (Manual) Abs Neuts (Manual) Lymphocytes # (Manual) Monocytes # (Manual) Toxic Vacuolation Platelet Estimate Plt Morphology Comment RBC Morphology VBG pH VBG pCO2 VBG pO2 VBG HCO3 VBG O2 Saturation VBG Base Excess Sodium 134 L Potassium 4.5 D Chloride 100 Carbon Dioxide 22 Anion Gap 17 BUN 14 Creatinine 0.99 Estim Creat Clear Calc 131.2 Estimated GFR > 60 Random Glucose 154 H Lactic Acid Lactic Acid F/U @ 2Hr Lactic Acid F/U @ 4Hr 3.3 H* Calcium 9.1 Phosphorus Magnesium Total Bilirubin AST ALT Alkaline Phosphatase Troponin I High Sens 124.7 H* B-Natriuretic Peptide Total Protein Albumin Urine Opiates Screen Not Detected Urine Fentanyl Screen POSITIVE H Ur Barbiturates Screen Not Detected Ur Phencyclidine Scrn Not Detected Ur Amphetamines Screen POSITIVE H U Benzodiazepines Scrn Not Detected Urine Cocaine Screen POSITIVE H U Marijuana (THC) Screen Not Detected 09/17/23 04:56 WBC 11.2 H RBC 4.31 L Hgb 13.7 L Hct 39.5 L MCV 91.6 MCH 31.8 MCHC 34.7 RDW 12.4 Plt Count 170 MPV 10.3 Immature Gran % (Auto) Cancelled Neut % (Auto) Cancelled Lymph % (Auto) Cancelled [place] % (Auto) Cancelled Eos % (Auto) Cancelled Baso % (Auto) Cancelled Lymph # (Auto) Cancelled [place] # (Auto) Cancelled Eos # (Auto) Cancelled Baso # (Auto) Cancelled Abs Immat Gran (auto) Cancelled Absolute Neuts (auto) Cancelled Absolute Nucleated RBC 0.000 Nucleated RBC % (auto) 0.0 Neutrophils % (Manual) 56 Band Neutrophils % 20 H Lymphocytes % (Manual) 13 L Monocytes % (Manual) 11 Abs Neuts (Manual) 8.5 H Lymphocytes # (Manual) 1.5 Monocytes # (Manual) 1.2 Toxic Vacuolation PRESENT Platelet Estimate NORMAL Plt Morphology Comment NORMAL RBC Morphology NORMAL VBG pH 7.43 VBG pCO2 32 VBG pO2 89 VBG HCO3 22 VBG O2 Saturation 99.0 VBG Base Excess -1.2 Sodium 133 L Potassium 6.7 H* D Chloride 102 Carbon Dioxide 23 Anion Gap 15 BUN 17 H Creatinine 1.02 Estim Creat Clear Calc 128.0 Estimated GFR > 60 Random Glucose 124 H Lactic Acid Lactic Acid F/U @ 2Hr Lactic Acid F/U @ 4Hr Calcium 9.1 Phosphorus 1.8 L Magnesium 2.5 Total Bilirubin 0.7 AST 20 ALT 24 Alkaline Phosphatase 38 L Troponin I High Sens 32.0 D B-Natriuretic Peptide Total Protein 7.3 Albumin 4.5 Urine Opiates Screen Urine Fentanyl Screen Ur Barbiturates Screen Ur Phencyclidine Scrn Ur Amphetamines Screen U Benzodiazepines Scrn Urine Cocaine Screen U Marijuana (THC) Screen Progress Note: A&P Assessment and plan (1) Epistaxis: Status: Acute (2) Hemoptysis: Status: Acute (3) Elevated troponin: Status: Acute (4) Acute non-cardiogenic pulmonary edema: Status: Acute (5) Overdose: Status: Acute Plan Assessment: 28-year-old gentleman with substance abuse admitted with opioid overdose status post [id number] Narcan with development of epistaxis, pulmonary edema, and minor hemoptysis requiring high-flow support. Plan: Neuro: Substance withdrawal, improving, now titrated off Precedex drip. Cardiac: Minor elevated troponin, down trended. Pulmonary: Acute hypoxic respiratory failure, CT chest reviewed, likely underlying upload induced pulmonary edema. Status post a dose of diuretic. Improved significantly. Continue to titrate off as tolerated. Minor hemoptysis on the background of epistaxis, resolved. Continue to monitor clinically. Renal: Hyperkalemia, nonoliguric. Status post Lokelma. Continue to monitor electrolytes and urine output. Endo: No acute issues. GI: No acute issues. ID: No acute issues Heme/Onc: No acute issues. Psych: No acute issues. Miscellaneous: No acute issues. Prophylaxis: Pneumatic compression Diet: Regular Critical care time spent: 45 minutes Quality Stroke Does the patient have a stroke diagnosis?: No VTE Prior VTE?: No VTE Risk Level:: Medical - moderate - high VTE Device Contraindication: N/A - Device Ordered VTE Drug Contraindication: Treatment Not Indicated
--- NOTE | 2023-09-17 09:32 | P.CDIM_ITS ---
PROVIDER RESPONSE TEXT: To clarify, the appropriate diagnosis supported by the clinical indicators: Clinically unable to determine (explain): No evidence of asthma at this time QUERY TEXT: PHYSICIAN'S DOCUMENTATION REQUEST Date of Query: 09/17/2023 08:57 AM EST Patient Name: Guy Hay Admit Date: 09/16/2023 Dear Hill Mcintosh, A review of the medical record indicates additional documentation may be needed. Please review below and update the documentation accordingly. Clinical indicators: ED 09/16 -Patient found to have sats of 30% on arrival. Started on nebs and NC but sats in 50's with RR 26 BIPAP done for asthma and pulmonary edema. Steroids PMH: Asthma Based on the above, please clarify in the Progress Notes further specificity regarding the type and a cuity of the asthma: Mild intermittent Please specify if with or without acute exacerbation or status asthmaticus Mild persistent Please specify if with or without acute exacerbation or status asthmaticus Moderate persistent Please specify if with or without acute exacerbation or status asthmaticus Severe persistent Please specify if with or without acute exacerbation or status asthmaticus Other (explain) Clinically unable to determine (explain) Thank you, Adriana Durbin, CCS, CDIS Use of terms such as suspected, likely, concern for, or probable (associated with a specific diagnosi s that is being evaluated, monitored, or treated as if it exists) are acceptable and can be coded in the inpatient se tting, when documented at the time of discharge. Please use your independent medical judgment in providing your response. THIS QUERY IS PART OF THE PERMANENT MEDICAL RECORD
--- NOTE | 2023-09-17 09:38 | P.CDIM_ITS ---
PROVIDER RESPONSE TEXT: To clarify, the appropriate diagnosis supported by the clinical indicators: Acute QUERY TEXT: PHYSICIAN'S DOCUMENTATION REQUEST Date of Query: 09/17/2023 09:04 AM EST Patient Name: Guy Hay Admit Date: 09/16/2023 Dear Hill Mcintosh, A review of the medical record indicates additional documentation may be needed. Please review below and update the documentation accordingly. Clinical Indicators: ED - Lactic acidosis and elevated troponin due to profound hypoxia. LA 3.3 Clarify which of the following accurately represents the acuity of the Lactic acidosis: Acute Acute on chronic Other (explain) Clinically unable to determine (explain) Thank you, Adriana Durbin, CCS, CDIS Use of terms such as suspected, likely, concern for, or probable (associated with a specific diagnosi s that is being evaluated, monitored, or treated as if it exists) are acceptable and can be coded in the inpatient se tting, when documented at the time of discharge. Please use your independent medical judgment in providing your response. THIS QUERY IS PART OF THE PERMANENT MEDICAL RECORD
--- NOTE | 2023-09-17 09:48 | MHC.CM.PN ---
Met w/pt to discuss d/c planning needs; pt states he is independent w/all care needs: lives alone, has no services or DME, declined HCP completion. Pt has cell: will call his friend for transportation to home. Pt states he hasn't seen his PCP Dr. Coker in a long time but feels he is still active with office. Recovery team to meet w/pt re: + substance use. CM to follow for changes in d/c plan.
[2023-09-17 12:53] LABS: Anion Gap 12 (12-20); Blood Urea Nitrogen 16 mg/dL (9-16); Calcium 9.2 mg/dL (8.4-10.2); Carbon Dioxide 27 mmol/L (22-29); Chloride 103 mmol/L (96-108); Creatinine Clr Calc Pharmacy 149.9; Estimated Glomerular Filt Rate > 60; Glucose Random 100 mg/dL (60-115); Potassium 4.2 mmol/L (3.3-5.1); Sodium 138 mmol/L (135-145)
[2023-09-17] MEDS: Sodium,Potassium Phosphates POWD.PACK 2 PACKET PO (13:42)
--- NOTE | 2023-09-17 14:45 | HO.SUDE ---
Met with pt in 254 after pt presented due to overdose. Pt admitted to ICU for epistaxis, hemoptysis, elevated troponin, hypoxia, acute non-cardiogenic pulmonary edema, and overdose. Pt laying in bed, awake, alert, easily engages in conversation. Pt reports brief history of substance use, has used fentanyl x3, 2 of which resulted in overdose. Pt reports the first time he used fentanyl was with cocaine, he used 3 pressed pills, IN. This did not result in overdose. Pt reports around 08/20 he used 1 pill, IN, which resulted in overdose and hospitalization at [facility]. Pt reports yesterday he used a piece of a pill. Pt reports substance use is precipitated by stress in his relationship and living with his partner. Pt feels as though if he weren't living with his partner/in this relationship, he would not use substances. Pt reports due to stress he spends time with people who use substances, such as cocaine, ecstasy, and fentanyl, and uses the substances as well. Pt denies need for recovery support, states I'm not doing fentanyl again. Discussed fentanyl presence in cocaine, pt declines fentanyl test strips, states I don't even have a connect for that anymore. Pt reports he has one supportive friend who does not use substances. Pt reports he lives in an apartment with his partner, is planning on asking his partner to move out soon. For family hx, pt reports uncle has AUD. Pt declines further recovery resources, denies questions or concerns for t/w. Encouraged to reach out if needed.
[2023-09-17] MEDS: diazePAM 10 MG/2 ML CARTRIDGE 5 MG IVPUSH (19:13)
--- NOTE | 2023-09-17 19:17 | PC.NURSE ---
Assumed care of patient 19:00. Prior to assuming care, this health technical writer observed the patient's reported girlfriend More showed up to the unit and speak with the day shift RN, stating she was here to visit him. Pt had initially expressed that he did not want visitors though after speaking with the evening nursing supervisor erection shop he clarified that he did not want Rylie or Siva (friends) to visit but, that his girlfriend More was okay for a short visit . A camera was placed in the room for safety prior to allowing the visitor to enter the room. The patient became very quickly agitated with his girlfriend and they began shouting at each other with patient's HR noted to be sustaining in the 130-140's while sitting in bed. This health technical writer responded to the room and was able to de-escalate the situation and More was asked to please leave. HR still tachy. Covering Dr. Jai Aguilar was notified of patient's tachycardia and agitation, order placed for 1x IV valium given, effectiveness pending. Nursing supervisor erection shop was updated and presented to the bedside for a de-brief with the patient. Patient is more calm at this time of writing; supervisor erection shop discussed no further visitors at this time to which the patient was agreeable. Security notified. Will continue to monitor patient safety and comfort.
[2023-09-18 00:37] VITALS: PULSE 83; RESP 20
[2023-09-18] MEDS: diazePAM 10 MG/2 ML CARTRIDGE 5 MG IVPUSH (01:25)
--- NOTE | 2023-09-18 01:27 | PC.NURSE ---
Rounded on patient, found with sweating noted to have saturated bedding. Bed changed and COWS scoring done given +UTOX for polysubstances including fentanyl and admission due to opioid overdose. Dr. Jai Aguilar notified of COWS and assessment, 1x stat IV valium ordered and given, prn valium q4h ordered as well. Will continue to monitor for remainder of customs entry writer's care. Camera was plugged back in by nursing staff after VMT reported a lost connection; staff presented to room where pt stated he had unplugged it. Pt was educated on camera for maintaining safety given oxygen tubing and valium.
[2023-09-18 02:54] VITALS: BP 134/77; PULSE 74; RESP 20; TEMP 36.8; O2SAT 97
[2023-09-18 06:54] LABS: MANUAL DIFF FLAG NO
[2023-09-18 07:00] LABS: Basophils Percent Auto 0.2 % (0-2); Eosinophils Absolute Auto 0.1 X10*3/uL (0.0-0.4); Imm Gran Abs Auto 0.03 X10*3/uL (0.00-0.03); Imm Gran Pct Auto 0.3 % (0.0-0.4); Lymphocytes Absolute Auto 1.5 X10*3/uL (1.2-4.9); Lymphocytes Percent Auto 17.1 % (20-40); Mean Corpuscular HGB Conc 34.2 g/dl (31.0-36.0); Mean Corpuscular Hemoglobin 31.8 pg (27.0-33.0); Mean Corpuscular Volume 92.9 fL (80.0-98.0); Mean Platelet Volume 10.3 fL (9.4-12.4); Monocytes Absolute Auto 1.1 X10*3/uL (0.1-1.2); Monocytes Percent Auto 12.5 % (2-11); Neutrophils Percent Auto 68.9 % (45-73); Platelet Count 159 X10*3/uL (160-400); Red Blood Count 4.09 X10*6/uL (4.60-5.80); Red Cell Distribution Width 12.6 % (11.0-16.0); White Blood Count 8.7 X10*3/uL (4.8-10.8)
[2023-09-18 07:23] LABS: Anion Gap 13 (12-20); Blood Urea Nitrogen 12 mg/dL (9-16); Calcium 9.1 mg/dL (8.4-10.2); Carbon Dioxide 27 mmol/L (22-29); Chloride 101 mmol/L (96-108); Creatinine Clr Calc Pharmacy 167.2; Estimated Glomerular Filt Rate > 60; Glucose Random 94 mg/dL (60-115); Magnesium 2.1 mg/dL (1.6-2.6); Phosphorus 2.5 mg/dL (2.7-4.5); Potassium 3.8 mmol/L (3.3-5.1); Sodium 137 mmol/L (135-145)
[2023-09-18 07:41] VITALS: BP 129/58; PULSE 77; RESP 17; TEMP 36.9; O2SAT 96
[2023-09-18] MEDS: predniSONE 20 MG TABLET 40 MG PO (11:00)
[2023-09-18 12:00] VITALS: BP 136/81; PULSE 108; RESP 15; TEMP 35.6; O2SAT 96
--- NOTE | 2023-09-18 12:55 | MHC.CM.PN ---
Pt is not yet ready for DC, CM will follow and assist with DC plan.
--- NOTE | 2023-09-18 14:02 | P.PNIM_ITS ---
Subjective Subjective Date of Service: 09/18/23 Interval History: seen and evaluated feels better still coughing bloody tinged sputum On 6L O2 supplement Review of Systems Review of Systems: Yes all other systems are reviewed and are negative Physical Exam 2 Vital Signs: Vital Signs: Last Vital Signs Temp 96.1 F L 09/18/23 12:00 Pulse 108 H 09/18/23 12:00 Resp 15 09/18/23 12:00 BP 136/81 09/18/23 12:00 Pulse Ox 96 09/18/23 12:00 O2 Del Method Nasal Cannula 09/18/23 12:00 O2 Flow Rate 2 09/18/23 12:00 FiO2 100 09/17/23 07:00 BMI result Body Mass Index 28.6 Const: Other: Constitutional : Awake, interactive, not in distress Neck : Normal inspection, Supple Cardiovascular : RRR, no JVP, no lower extremity edema Respiratory : good bilateral air entry, no crackles, wheezes or rhonchi Gastrointestinal: soft, lax, Normal bowel sounds, Non tender Skin : Warm, Dry Neurological : Alert & oriented x3, No focal deficit Objective Data Active Medications Diazepam (Diazepam 10 Mg/2 Ml Cartridge) 5 mg IVPUSH Q4H PRN PRN Reason: Opiate Withdrawal Prednisone (Prednisone 20 Mg Tablet) 40 mg PO DAILY SUAD Last Admin: 09/18/23 11:00 Dose: 40 mg Documented By: STEVEN Labs 09/18/23 06:18 09/18/23 06:18 Labs: Laboratory Results - last 24 hr 09/18/23 06:18 MCV 92.9 MCH 31.8 MCHC 34.2 RDW 12.6 Plt Count 159 L MPV 10.3 Immature Gran % (Auto) 0.3 Neut % (Auto) 68.9 Lymph % (Auto) 17.1 L [place] % (Auto) 12.5 H Eos % (Auto) 1.0 Baso % (Auto) 0.2 Lymph # (Auto) 1.5 [place] # (Auto) 1.1 Eos # (Auto) 0.1 Baso # (Auto) 0.0 Abs Immat Gran (auto) 0.03 Absolute Neuts (auto) 6.0 Absolute Nucleated RBC 0.000 Nucleated RBC % (auto) 0.0 Anion Gap 13 Estim Creat Clear Calc 167.2 Estimated GFR > 60 Random Glucose 94 Calcium 9.1 Phosphorus 2.5 L Magnesium 2.1 Microbiology Microbiology Results: Microbiology 09/16/23 09:51 Blood Culture - Preliminary Blood - Venous No growth after 48 hours. 09/16/23 09:53 Blood Culture - Preliminary Blood - Venous No growth after 48 hours. Assessment and Plan (1) Hemoptysis: Status: Acute (2) Elevated troponin: Status: Acute (3) Hypoxia: Status: Acute (4) Acute non-cardiogenic pulmonary edema: Status: Acute Plan 28-year-old gentleman with substance abuse admitted with opioid overdose status post [id number] Narcan with development of epistaxis, pulmonary edema, and minor hemoptysis requiring high-flow support. Substance withdrawal improving titrated off Precedex drip, PRN Valium Addiction team following Elevated troponin secondary to hypoxia, down trended Acute hypoxic respiratory failure 2/2 pulm edema vs alveolar hemorrhage CT chest reviewed, received diuretic still having minor hemoptysis Start PO Prednisone Wean O2 down as tolerated acute Hyperkalemia resolved Prophylaxis: Pneumatic compression Diet: Regular The patient will need overnight stay for O2 supplement given hypoxia and monitoring of active hemoptysis and signs of withdrawal Quality Stroke Does the patient have a stroke diagnosis?: No VTE Prior VTE?: No VTE Risk Level:: Medical - moderate - high VTE Device Contraindication: N/A - Device Ordered VTE Drug Contraindication: Treatment Not Indicated
--- NOTE | 2023-09-18 15:22 | MHC.RECOVRN ---
Met with pt in 470 to follow up and provide pt with fentanyl test strips. Pt awake, alert, easily engages in conversation. Pt reports not feeling well, hot/cold flashes, diaphoresis, upset stomach. Discussed these being symptoms of opioid withdrawal, pt denies this is the case as he has only used opioids 3 times. Discussed possibility of fentanyl presence in cocaine pt has been using, pt reports I've only used that a few times in a month. Discussed harm reduction, pt was accepting of fentanyl test strips. Pt denies questions or concerns for t/w. Discussed with Tawanna Anders APRN.
[2023-09-18 15:48] VITALS: BP 131/79; PULSE 76; RESP 18; TEMP 36.2; O2SAT 98
--- NOTE | 2023-09-18 20:44 | PM.EVENT ---
Event Note Date of Service: 09/18/23 Event Note: Contacted to notify patient wishes to leave AMA. I spoke with the patient and asked why he wants to leave. He said that whatever we are doing for him he can do it at home. He was alert and oriented X3. Upon trying to explaining that he is responsible about his decision to leave he started to became agitated and verbally abuse. I removed myself from his room as I felt uncomfortable about his aggressive behaviour. I wrote on his AMA document the risks about abandoning the hospital prematurely including respiratory failure, bleeding from lungs and . [place] paperwork was signed and given to his nurse. Time Spent With Patient Time: Total time managing care of this patient today ____ minutes.
--- NOTE | 2023-09-19 07:42 | PM.DS ---
DS: Providers Provider Date of Service: 09/22/23 Date of admission: 09/16/23 14:21 Primary care physician: Kamari Coker MD Consults: 09/17/23 05:53 Addiction Medicine Stat Consulting Provider: Addiction Covering Reason for consultation: overdose Has provider been notified: No DS: Diagnosis Discharge Diagnosis (1) Hemoptysis: Status: Acute (2) Elevated troponin: Status: Acute (3) Hypoxia: Status: Acute (4) Acute non-cardiogenic pulmonary edema: Status: Acute DS: Summary Hospital Course Hospital Course: A 28-year-old gentleman with substance abuse admitted with opioid overdose status post [id number] Narcan with development of epistaxis, pulmonary edema, and minor hemoptysis requiring high-flow support. # Substance withdrawal admitted to ICU and titrated off Precedex drip, PRN Valium Addiction team followed him. he decided to leave AMA. # Elevated troponin secondary to hypoxia, down trended # Acute hypoxic respiratory failure 2/2 pulm edema vs alveolar hemorrhage CT chest reviewed and he was treated with diuretic and steroids. continued to have minor hemoptysis The patient decided to leave AMA. Time Attestation Discharge coordination time: Greater than 30 minutes Quality: Safe Use of Opioids Does Pt have an Active Cancer Diagnosis on the Problem List?: No Quality: Stroke Does the patient have a stroke diagnosis?: No Physical Exam Vital Signs: Vital Signs: Last Vital Signs Temp 97.1 F 09/18/23 15:48 Pulse 76 09/18/23 15:48 Resp 18 09/18/23 15:48 BP 131/79 09/18/23 15:48 Pulse Ox 98 09/18/23 15:48 O2 Del Method Nasal Cannula 09/18/23 15:48 O2 Flow Rate 3 09/18/23 15:48 FiO2 100 09/17/23 07:00 BMI result Body Mass Index 28.6 Const: Other: AMA DS: Data Data Completed and Pending Labs on day of discharge: Preliminary micro results at discharge 09/16/23 09:51 Blood Culture - Preliminary Blood - Venous No growth after 48 hours. 09/16/23 09:53 Blood Culture - Preliminary Blood - Venous No growth after 48 hours. Imaging Chest x-ray: Radiologist's impression: ITS Impressions Chest X-Ray 09/16/23 09:45 IMPRESSION: Widespread confluent alveolar consolidations. This likely reflects noncardiogenic pulmonary edema. Chest CT 09/16/23 12:35 IMPRESSION: Extensive bilateral perihilar airspace disease with relative sparing of the peripheral lung. The differential diagnosis would include inflammatory or infectious etiologies however the perihilar distribution is most suggestive of pulmonary edema. Fleischner guidelines were followed. Discharge Plan Discharge Patient Disposition: Left Against Medical Advice Discharge Diagnosis: . Referrals: Kamari Coker MD [Primary Care Provider] - 1 Week Discharge Medications: No Action No Known Home Meds Discharge Orders: Discharge Order (Routine); Ordered 09/22/23 Ordered By: Jonna Fair Care Plan Goals: . Health Concerns: . Plan of Treatment: . Assessment: . Discharge Date/Time: 09/18/23 20:30
== END 2023-09-18 20:30 | disposition left against medical advice (07) | DRG 917 ==
LOC: HO.ED 13:28 → HO.EDOVER 14:26 → HO.ICU 14:46 → HO.IMC 09-17 13:34
PROVIDERS: Nurse Practitioner Family; Physician Assistant; Admitting Provider Internal Medicine Pulmonary Disease; Emergency Provider Emergency Medicine; PCP Internal Medicine; Visit Provider Student in an Organized Health Care Education/Training Program
DX: T40.2X4A Poisoning by other opioids, undetermined, initial encounter (principal); J96.01 Acute respiratory failure with hypoxia; R04.2 Hemoptysis; E87.21 Acute metabolic acidosis; F19.130 Other psychoactive substance abuse with withdrawal, uncomplicated; R04.89 Hemorrhage from other sites in respiratory passages; E87.5 Hyperkalemia; J70.2 Acute drug-induced interstitial lung disorders; R04.0 Epistaxis; F17.210 Nicotine dependence, cigarettes, uncomplicated; Z71.6 Tobacco abuse counseling
CPT/HCPCS: 36415; 71045; 71250; 80048; 80053; 80307; 82803; 83605; 83735; 83880; 84100; 84484; 85007; 85025; 85027; 87040; 93005; 94640; 94664; 99285; 99499; J1940; J2310; J2930; J3360; J3475; J3480

== ENCOUNTER → 2023-09-16 10:05 | Outpatient (BNV) | payer SELFPAY | PROVIDERS: Admitting Provider Internal Medicine Pulmonary Disease; Emergency Provider Emergency Medicine; PCP Internal Medicine; Visit Provider Internal Medicine | DX: R00.0 Tachycardia, unspecified (principal); I45.10 Unspecified right bundle-branch block | CPT/HCPCS: 93010 ==

== ENCOUNTER → 2023-09-16 14:21 | Outpatient (BNV) | payer SELFPAY | PROVIDERS: Admitting Provider Internal Medicine Pulmonary Disease; Emergency Provider Emergency Medicine; PCP Internal Medicine; Visit Provider Student in an Organized Health Care Education/Training Program | DX: J96.01 Acute respiratory failure with hypoxia (principal); R04.2 Hemoptysis; R79.89 Other specified abnormal findings of blood chemistry; J81.0 Acute pulmonary edema | CPT/HCPCS: 99233; 99238 ==

== ENCOUNTER → 2023-09-16 14:21 | Outpatient (BNV) | payer SELFPAY | PROVIDERS: Admitting Provider Internal Medicine Pulmonary Disease; Emergency Provider Emergency Medicine; PCP Internal Medicine; Visit Provider Internal Medicine Pulmonary Disease | DX: J81.0 Acute pulmonary edema (principal); T50.901A Poisoning by unspecified drugs, medicaments and biological substances, accidental (unintentional), initial encounter; R79.89 Other specified abnormal findings of blood chemistry | CPT/HCPCS: 99291 ==